=== PATIENT | female | born 1970 | race Caucasian/White ===

== ENCOUNTER 2016-11-28 20:25 | Emergency (ER) | payer OTHER, BC | END 2016-11-28 23:08 | disposition short-term general hospital (02) | LOC: ER 20:25 → RAD 20:25 → ER 23:08 | DX: S13.4XXA Sprain of ligaments of cervical spine, initial encounter (principal); V89.0XXA Person injured in unspecified motor-vehicle accident, nontraffic, initial encounter; Z98.51 Tubal ligation status; Z98.890 Other specified postprocedural states | CPT/HCPCS: J1885; J8499 ==